=== PATIENT | female | born 1980 | race Caucasian/White ===

== ENCOUNTER 2019-01-02 11:11 | Emergency (ER) | payer OTHER ==
[~2019-01-02] VITALS: Ht 154.9 cm; Wt 66.4 kg
[2019-01-02 11:14] VITALS: Ht 154.9 cm; Wt 66.4 kg
[2019-01-02] MEDS ORDERED: ACETAMINOPHEN 500 MG TAB PO STA (11:26)
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
[2019-01-02] MEDS ORDERED: ACET325T33 PO (12:22)
[2019-01-02 12:27] VITALS: BP 123/74; PULSE 63; RESP 16
== END 2019-01-02 12:28 | disposition home or self-care (01) ==
LOC: E/R 11:11
DX: O99.89 Other specified diseases and conditions complicating pregnancy, childbirth and the puerperium (principal); S30.1XXA Contusion of abdominal wall, initial encounter; V89.2XXA Person injured in unspecified motor-vehicle accident, traffic, initial encounter
CPT/HCPCS: 74018; Z7502; Z7610